=== PATIENT | female | born 1970 | race Caucasian/White ===

== ENCOUNTER 2018-10-13 07:01 | Day surgery (SDC) | payer OTHER, SELFPAY ==
--- NOTE | 2018-10-02 11:54 | PCM.HP.BLA ---
History and Physical Date of Admission: 10/13/18 Surgical History and Physical Maryam Mendoza, a 48 year old female 0 5 0 0 5, presents for LAVH/BSO on October 13, 2018 at 9:00. -- Heavy Menses, Anemia, Enlarged Uterus -- Maryam reports she has been having a lot of heavy bleeding causing Anemia resulting in getting 2 units PRC's and 5 doses of Fanafer(Iron). Heavy bleeding started gradually and has been present symptoms since 05/2018. It occurs intermittantly. It is located in the lower abdomen. Maryam characterizes the quality heavy bleeding, pelvic pain, anemia. Severity is moderate and very concerned; It is relieved by several doses of IV iron. Additional comments are: U/S in [place] normal except 14 cm uterus; had blood txn after bled down to 7.1; TSH recently normal; was taking 3 OCPs daily with 2 mg estradiol but recently stopped; EMBx OK. MEDICATIONS HISTORY: Patient is also takin. Ferrex 150 mg iron capsule, One pill by mouth once every other day 2. levonorgestrel 0.15 mg-ethinyl estradiol 0.03 mg tablet, One pill by mouth three times a day ALLERGIES: No Known Allergies Infections - Chicken pox Illnesses - Anemia Review of Systems: GENERAL - Denies fever, or chills SKIN - Denies skin changes EYES - Denies visual changes EARS - Denies difficulty hearing NOSE - Denies nasal congestion or bleeding MOUTH - Denies sore throat or difficulty swallowing NECK - Denies pain or swelling RESPIRATORY - Denies shortness of breath or wheezing CARDIOVASCULAR - Denies palpitations or chest pain GASTROINTESTINAL - Denies nausea, vomiting, diarrhea, constipation GENITOURINARY - Denies dysuria, frequency of urination, incontinence of urine MUSCULOSKELETAL - Denies joint or muscle pain NEUROLOGICAL - Denies localized numbness or weakness PSYCHIATRIC - Denies depression or anxiety ENDOCRINE - Denies heat or cold intolerance, weight loss or gain HEMATO-IMMUNOLOGIC - Denies excesive bleeding with cuts SOCIAL HISTORY: Alcohol Use - occasionally Smoking - Never Diet - no special diet Lifestyle - moderate stress lifestyle and Exercise - active work Seat Belt Use - always Employer - [employer] Job Description - Cee RN Illicit Drug Use - None Sexual Activity - Spouse-Sig Other Name - Gray Spouse-Sig Other Occupation - Medical Customer Service Representative Children Name(s) - 5 children Control - Prior Tubal FAMILY HISTORY: MENSTRUAL HISTORY: LMP Known?- DefiniteAmount/Duration - excess amount, Regularity - Regular, Frequency - monthly days, LMP - 08/10/18, Age Onset Menarche - 12 PAST PREGNANCIES: Total Pregnancies - 5; Full Term Pregnancies - 0; Premature - 5; Abortions, Induced - 0; Abortions, Spontaneous - 0; Ectopics - 0; Multiple Births - 0; Living Children - 5 SURGICAL HISTORY: 1. Tubal, 2001 2. 2008 Lipoma Removal PHYSICAL EXAM BP- 114/62 Sitting, Left arm, regular cuff Weight- 146.29153 lbs Height- 65 inch BMI:24.35 CONSTITUTIONAL - NAD, well nourished, and well developed SKIN - No rash, lesions, or ulcers HEENT - Normocephalic, PERRLA, EOMI NECK - No nodes, no nuchal rigidity and thyroid normal size and texture LYMPH NODES - Palpation of lymph nodes in neck and groins within normal limits LUNGS - CTA x2 without wheezes, crackles or rales CARDIAC - Regular rate and rhythm without rubs, murmurs, or gallops ABDOMEN - Without hepatosplenomegaly, distention, masses, rebound, or guarding; normal bowel sounds; no hernias EXTREMITIES - No edema or calf tenderness NEUROLOGICAL - Cranial nerves II-XII grossly intact PSYCHIATRIC - A and O to time, place, person, mood and affect External Genitial Vagina - non-tender without lesions Urethra/Urethral Meatus - non-tender Bladder - non-tender Vagina - vaginal coronado are pink and moist without loss of rugae and no evidence of atropy Cervix - without cervical motion tenderness and has normal size and features without evident lesions Uterus - 15 cm sized uterus non-tender, mobile Adnexa - clear without masses or tenderness ASSESSMENT/PLAN: 1. Blood Loss Anemia, Enlarged Uterus and Menorrhagia Uncertain etiology but suspect adenomyosis or unseen submucous fibroid on u/s given extent and severity of bleeding. Discussed longer term options for treatment including ablation versus proceeding with definitive surgery and pt desires we proceed with LAVH/BSO. Discussed RBAs and all questions answerded.
[2018-10-02 12:43] LABS: Hematocrit 36.6 % (37-47); Hemoglobin 11.5 g/dl (12.0-15.0); Mean Corp Hgb Conc 31.4 g/gl (32-36); Mean Corpuscular Hgb 27.5 pg (27.0-32.0); Mean Corpuscular Volume 87.6 fL (81-99); Platelet Count 287 K/mm3 (150-450); RBC Distribution Width CV 16.6 % (11.6-14.6); RBC Distribution Width SD 49.3 fl (35.1-43.9); Red Blood Count 4.18 M/mm3 (4.2-5.4); White Blood Count 5.9 K/mm3 (4.4-11.0)
[2018-10-02 12:46] LABS: Scan Indicated on CBC? Y/N YES- FLAGS NOTED
[2018-10-02 13:14] LABS: Creatinine, Serum 0.69 mg/dL (0.55-1.02); EST Glomerular Filtration Rate 96 mL/min (>60); Est Glom Filt Rate - Afr Amer 116 mL/min (>60)
[2018-10-13] VITALS (12 sets, daily range): BP systolic 97–124; BP diastolic 52–71; PULSE 52–66; RESP 14–18; TEMP 36.3–37; O2SAT 96–100; BMI 24.2
[2018-10-13 08:12] LABS: Prothrombin Time (Protime)PT. 12.6 SECONDS (11.7-14.9)
--- NOTE | 2018-10-13 08:55 | HYST_PTH ---
PATIENT: ABHINAV ISAAC LOC: [facility] – [place] U#:[id number] AGE/SX: 48/F ROOM: RE10/13/[address]: Dr. Ozzie Falcon MD : [id number] BED: DIS: 10/14/2018 SPEC #: [id number] RECD: 10/13/18 11:07 STATUS: CHAPIN ANTWAN #: [id number] HARSH: 10/13/18 08:[address]: Ozzie Falcon DEPT: SURGICAL PATHOLOGY RECD BY: Osmar Mayo ENTERED: 10/13/18 13:23 SP TYPE: HYSTERECT OTHR DR: Dr. Lola Jc, Tissues: Uterus, NOS Procedures: Surgery Specimen Level V HEADER OPERATION: Laparoscopic assisted vaginal hysterectomy, bilateral salpingectomy PRE-OP DIAGNOSIS: Enlarged uterus and menorrhagia TISSUE SUBMITTED: Uterus, cervix, bilateral fallopian tubes, bilateral ovaries MICROSCOPIC DIAGNOSIS Uterus, cervix, bilateral fallopian tubes and bilateral ovaries, vaginal hysterectomy and bilateral salpingo-oophorectomy: Cervix - mild chronic cystic cervicitis. Endometrium - inactive endometrium with focal changes consistent with exogenous hormone effects. Myometrium - adenomyosis. One fallopian tube - mucosa with focal changes consistent with exogenous hormone effect. - Focal hematosalpinx. Second fallopian tube - no pathologic diagnosis. Bilateral ovaries - no pathologic diagnosis. SJ:sage 10/14/18 MICROSCOPIC DESCRIPTION Slides are reviewed. GROSS DESCRIPTION Received in fixative is one container labeled with the patient's name and designated uterus, cervix, bilateral fallopian tubes and bilateral ovaries. The specimen consists of a hysterectomy specimen in multiple pieces consisting of uterus with attached bilateral fallopian tubes and ovaries to the large piece, detached pieces of uterus and also detached piece of cervix and portion of distal uterine segment. The uterus in multiple pieces with cervix weighs in aggregate 325 gm. The cervix with portion of distal uterine segment measures 9 x 5 x 4?cm. The ectocervical mucosa is focally congested. The external os is oval and patulous in contour. The endocervical canal measures 4 cm in length and the endocervical mucosa is flood, glistening and unremarkable. The portion of endometrial cavity present in this piece measures 5 cm in length and up to 1 cm in width. The larger piece of uterus measures 9 x 8 x 5 cm. The serosal surface is flood, glistening. The body of the uterus cannot be oriented. The portion of endometrial cavity in this piece of uterus measures 3 cm in length and up to 3 cm in width. The endometrium in both pieces is flood, glistening without any mass lesion and measures <0.1 cm in thickness. Sections of the uterine wall do not reveal any mass lesion and it measures up to 3.5 cm in thickness. The detached pieces of uterus measure in aggregate 9 x 8 x 3 cm. Sections do not reveal any mass lesion. The fallopian tubes and ovaries could not be oriented due to distortion of the body of the uterus. One of the fallopian tubes measure 7 cm in length and 0.5 cm in diameter. The fimbrial end is identified. It is interrupted in the middle. Proximal to the occlusion, the lumen is dilated and filled with bloody fluid. The adjacent ovary measures 2.5 x 1.5 x 1 cm. Sections reveal unremarkable cut surfaces. The second fallopian tube measures 6 cm in length and 0.6 cm in diameter. The fimbrial end is identified. No obvious area of discontinuity is noted in this fallopian tube. The adjacent second ovary measures 3 x 1.5 x 1 cm. Sections reveal unremarkable cut surfaces. No tubo-ovarian adhesions are noted in both fallopian tubes and ovaries. Supervisor Brine sections are submitted in ten cassettes as follows: 1 & 2 - cervix, 3-6 - uterine wall including endometrium, 7 - one fallopian tube, 8 - adjacent ovary, 9 - second fallopian tube 10??adjacent second ovary. / YANIV:sage 10/13/18 TC:5 CPT: 44083
[2018-10-13] MEDS: Ropivacaine 0.5% 30 ML Vial (09:30)
--- NOTE | 2018-10-13 10:54 | OP.PCM_ITS ---
Report of Operation Date of Procedure: 10/13/18 Pre-Operative Diagnosis: Menorrhagia, Uterine Fibroids, Blood Loss Anemia Post-Operative Diagnosis: Menorrhagia, Uterine Fibroids, Blood Loss Anemia Surgery/Procedure Performed:: Laparoscopic Assisted Vaginal Hysterectomy and Bilateral Salpingo-Oophorectomy Description of Surgical Findings:: 14 cm fibroid uterus with normal-appearing fallopian tubes and ovaries. developer programmer: Nicolas Banda Type of Anesthesia:: General - Endotracheal Anesthesiologist: Chen Gates Specimen's removed: Uterus with bilateral fallopian tubes and ovaries Drains: Hutchins to straight drainage Estimated Blood Loss (mL): 250 cc Fluids Replaced: Crystalloid Description of Procedure: Surgeon: Ozzie Falcon MD, FACOG Indications: This is a 48-year-old patient who is been having problems with extremely heavy periods and blood loss anemia. In fact transfusion and IV iron therapy were necessary. Other conservative measures have not been helpful. Given this the patient desires that we proceed the above procedure. She has been counseled regarding the risk and indications of this procedure including the possibility of bleeding, infection, and injury to surrounding structures such as bowel bladder. She also understands that after this procedure she will need to be on hormone replacement therapy for an indefinite period of time. All questions were answered. Procedure: Patient was taken to the operating room where after induction of general anesthesia she was placed in the dorsal lithotomy position and prepped and draped in the usual sterile fashion. A Hutchins catheter was placed. Anterior cervix was grasped with a tenaculum and anterior cervix circumscribed with cautery on a setting of 35 W coagulation. Anterior vaginal mucosa was undermined and a 4 x 4 raytec sponge was placed to identify the peritoneal reflection of the bladder intraperitoneally. Conn cannula was placed and attention was turned towards the laparoscopic portion of the procedure. Approximately 20 cc of half percent ropivacaine was injected subumbilically, suprapubically, and midway between. A 5 mm bladeless trocar was introduced subumbilically and intraperitoneal placement confirmed. CO2 insufflation was completed and, under direct visualization, a 5 mm bladeless trocar was introduced suprapubically. A 5 mm bladeless trocar was introduced midway between these 2 ports. Enseal was used to cauterize the infundibulopelvic ligaments to the level of the round ligament and the Raytec placed in the vagina was visualized. Scissors was used to open the peritoneum and under direct visualization a narrow [place] was placed vaginally; CO2 gas was stopped and attention turned toward the vaginal hysterectomy portion of the procedure. The posterior aspect of the cervix was circumscribed with a knife and posterior peritoneum easily entered. Progressive bites were taken on either side of the uterine cervix and each pedicle ligated with 0 Vicryl suture. It was necessary to bivalve the uterus and removing pieces in order to remove it through the vagina due to its large size. Superior pedicles were ligated ?2 with 0 Vicryl suture and sidewall pedicles were examined and oversewn where necessary with fi [id number] 0 Vicryl suture to achieve hemostasis. Posterior vaginal cuff was oversewn with running locked 0 Vicryl suture. Hemostasis was noted and peritoneum was closed in a pursestring fashion incorporating superior pedicles into the stitch. Vaginal cuff was then closed front to back with interrupted [id number] 0 Vicryl suture. Hemostasis was noted. Attention was turned toward the laparoscopic portion of the procedure. CO2 insufflation was completed and pedicles were examined and noted to be hemostatic. Both ureters were visualized and noted to peristalsis. Laparoscopic instruments with as much CO2 gas as possible was removed and skin incisions were closed with interrupted 4-0 Monocryl suture. Steri-Strips were placed across the incisions. Patient tolerated the procedure well was taken to recovery room in satisfactory condition; sponge instrument and needle counts were all reportedly correct. Estimated blood loss for the case was 250 cc. Cefotan 2 g IV was given prior to beginning the operative procedure. There were no apparent complications of the surgery. Specimen to pathology was uterus and bilateral fallopian tubes and ovaries. - Complications None - Admit VTE Documentation VTE Present on Admission: Yes VTE Mechan Device Prophylaxis: SCD's VTE Pharm Prophylaxis ordered?: Yes
--- NOTE | 2018-10-13 10:56 | DCINST_ITS ---
Discharge Diet: No Restrictions Discharge Activity: Return to Normal Activity, May Not Drive - while taking narcotic pain medications., May Shower May resume sexual activity in: 6-8 weeks Call your doctor if your incision/area has: Continuous Slow Oozing, Sudden Increased Bleeding, Increased Pain/ Swelling, Increased Redness, Foul Smelling Discharge Call your doctor if you observe: Fever of 101 or Higher, Inability to urinate, Inability to have a bowel movement, Using more than one pad per hour Allergies/Adverse Reactions: Allergies No Known Allergies Allergy (Verified 09/29/18 14:17) Medications to take at Discharge Docusate Sodium [Colace] 100 mg PO BID PRN PRN #60 cap 10/13/18 Estradiol 1 mg PO DAILY #100 tab 10/13/18 Oxycodone [Oxyir] 5 mg PO Q6H PRN PRN 7 Days #20 tab 10/13/18 The following prescriptions were given: Oxycodone [Oxyir] 5 mg PO Q6H PRN PRN 7 Days #20 tab PRN Reason: Severe Pain (-04/16) Docusate Sodium [Colace] 100 mg PO BID PRN PRN #60 cap PRN Reason: Constipation Estradiol 1 mg PO DAILY #100 tab Primary Care Physician: Lola Jc DO [Primary Care Provider] - Test Results: Test results from this visit will be discussed in further detail at your follow- up appointment, if applicable. Please Follow Up With: Ozzie Falcon MD When: 2-3 weeks
[2018-10-13] MEDS: 0.9% NaCl Peripheral Flush Adult/Peds IV (12:29)
[2018-10-13] MEDS: HYDROmorphone 0.5 MG/0.5 ML SYRINGE IV ×2 (12:29→15:18)
[2018-10-13] MEDS: Dextrose 5%-Lactated Ringers 1,000 ML 150 ML IV ×2 (12:33→18:08)
[2018-10-13] MEDS: Docusate Sodium 100 MG Capsule PO (12:43)
[2018-10-13] MEDS: oxyCODONE 5 MG Tablet PO (17:56)
[2018-10-13] MEDS: Ketorolac 30 MG/ML Syringe IV ×2 (17:57→22:19)
[2018-10-13] MEDS: Enoxaparin 30 MG/0.3 ML Syringe SC (17:58)
[2018-10-14] MEDS: Dextrose 5%-Lactated Ringers 1,000 ML 150 ML IV (00:16)
[2018-10-14 02:34] VITALS: BP 91/33; PULSE 57; RESP 16; TEMP 37.1; O2SAT 99
[2018-10-14] MEDS: Ketorolac 30 MG/ML Syringe IV (05:36)
[2018-10-14 05:40] VITALS: BP 98/43; PULSE 59
[2018-10-14 06:16] LABS: Hematocrit 30.6 % (37-47); Hemoglobin 9.5 g/dl (12.0-15.0); Mean Corpuscular Hgb 26.8 pg (27.0-32.0); Mean Corpuscular Volume 86.4 fL (81-99); Mean Platelet Vol. 12.5 fl (6.2-12.0); Platelet Count 232 K/mm3 (150-450); RBC Distribution Width CV 15.2 % (11.6-14.6); RBC Distribution Width SD 45.6 fl (35.1-43.9); Red Blood Count 3.54 M/mm3 (4.2-5.4); White Blood Count 7.8 K/mm3 (4.4-11.0)
[2018-10-14 06:21] LABS: Scan Indicated on CBC? Y/N NO
[2018-10-14 06:29] LABS: Creatinine, Serum 0.75 mg/dL (0.55-1.02); EST Glomerular Filtration Rate 88 mL/min (>60); Est Glom Filt Rate - Afr Amer 106 mL/min (>60); Estimated Creatinine Clearance 82.54 ml/min
[2018-10-14 07:30] VITALS: O2SAT 99
[2018-10-14 08:23] VITALS: BP 100/53; PULSE 56; RESP 14; TEMP 36.8; O2SAT 100
--- NOTE | 2018-10-14 08:23 | PCM.PN.OB ---
Subjective: Patient without complaints. Tolerating diet well. Hutchins catheter out and has not yet voided. Minimal vaginal bleeding noted. - Physical Exam Vital Signs Temp Pulse Resp BP Pulse Ox 98.7 F 59 L 16 98/43 L 99 10/14/18 02:34 10/14/18 05:40 10/14/18 02:34 10/14/18 05:40 10/14/18 02:34 Oxygen Flow Rate (L/min) 7 Oxygen Delivery Method Room Air Weight: 145 lb 11.609 oz Body Mass Index (BMI) 24.2 Intake and Output for Last 24 Hours 10/12/18 10/13/18 10/14/18 23:59 23:59 23:59 Intake Total 2963 / 2963 2311 / 2311 Output Total 870 / 870 725 / 725 Balance 3 / 3 1586 / 1586 Laboratory Tests Past 24 Hrs 10/14/18 10/14/18 05:26 05:26 WBC 7.8 RBC 3.54 L Hgb 9.5 L Hct 30.6 L MCV 86.4 MCH 26.8 L MCHC 31.0 L RDW 15.2 H RDW Differential 45.6 H Plt Count 232 MPV 12.5 H Creatinine 0.75 Estim Creat Clear Calc 82.54 Est GFR (MDRD) Af Amer 106 Est GFR (MDRD) Non-Af 88 Wounds are clean, dry, intact. Good urine output. Hemoglobin and creatinine okay. Medical Necessity - Tobacco Use Smoking Status: Never smoker Assessment/Plan Doing well postoperative day #1 status post LAVH/BSO. Will release to home with routine instructions.
[2018-10-14] MEDS: oxyCODONE 5 MG Tablet PO (08:39)
[2018-10-14 09:18] VITALS: BP 100/53; PULSE 56; RESP 14; TEMP 36.8; O2SAT 100
[2018-10-14] MEDS: Estrogens,Conj. 0.625 MG Tablet PO (11:04)
[2018-10-14] MEDS: Ketorolac 10 MG Tablet PO (11:11)
--- NOTE | 2018-10-14 11:13 | NURSING ---
pt dropped 1st po toradol on floor, pulled 2nd and administered
== END 2018-10-14 11:44 | disposition home or self-care (01) ==
LOC: SDC 07:01 → AC 07:03 → MS2 08:27
PROVIDERS: Family Provider Internal Medicine; PCP Internal Medicine; Referring Provider Obstetrics & Gynecology; Visit Provider Obstetrics & Gynecology
PROC: 0UT9FZZ Resection of Uterus, Via Natural or Artificial Opening With Percutaneous Endoscopic Assistance (ICD-10-PCS; CPT 58554; principal; 2018-10-13 08:30)
DX: N92.0 Excessive and frequent menstruation with regular cycle (principal); D25.0 Submucous leiomyoma of uterus; D50.0 Iron deficiency anemia secondary to blood loss (chronic); N72 Inflammatory disease of cervix uteri; N80.0 Endometriosis of uterus; N83.6 Hematosalpinx
CPT/HCPCS: 58554; 36415; 36416; 82565; 85027; 85610; 85730; 86850; 86900; 88307; J7120; A4216; J2405